=== PATIENT | male | born 1995 | race Caucasian/White ===

== ENCOUNTER 2022-07-08 17:27 | Emergency (ER) | payer BC, OTHER ==
[2022-07-08] MEDS ORDERED: HYDROcodone/Acetaminophen 5/325 mg Tablet ONE (19:08)
== END 2022-07-08 19:48 | disposition home or self-care (01) ==
LOC: CSHERS 17:27
DX: S63.501A Unspecified sprain of right wrist, initial encounter (principal); W22.8XXA Striking against or struck by other objects, initial encounter